=== PATIENT | female | born 1935 | race Asian ===

== ENCOUNTER 2017-10-24 12:32 | Outpatient (CLI) | payer OTHER ==
--- NOTE | 2017-10-24 13:52 | Ultrasound Report ---
ULTRASOUND RENAL INDICATION: CKD, stage IV. COMPARISON: None similar at this institution. FINDINGS: Renal sonography partly limited due to patient's body habitus and bowel gas, though suggests borderline/slight increased renal cortical echogenicity. Grossly preserved contours. No hydronephrosis. RIGHT KIDNEY measures 8.5 x 3.6 x 3.7 cm with cortical thickness of 1.2 cm. LEFT KIDNEY estimated at 9.2 x 3.5 x 3.8 cm with cortical thickness of 1.7 cm. URINARY BLADDER suboptimally distended and assessed, though grossly unremarkable, in so far seen. CONCLUSION: Mild underlying medical renal disease not excluded sonographically without acute renal abnormality. Please correlate. Thank you for the opportunity to participate in this patient's care.
== END 2017-10-24 12:33 | disposition home or self-care (01) ==
LOC: US 12:32
PROVIDERS: ATTEND Internal Medicine Nephrology
DX: N18.4 Chronic kidney disease, stage 4 (severe) (principal)
CPT/HCPCS: 76770